=== PATIENT | male | born 1995 | race Caucasian/White ===

== ENCOUNTER 2024-10-16 08:50 | Emergency (ER) | payer MEDICAID, SELFPAY ==
[2024-10-16 08:51] VITALS: BMI 26.4
--- NOTE | 2024-10-16 08:53 | XR_ITS ---
Examination: Ribs, right, 5 views, including AP chest Technique: AP supine chest, RIBS AP, RPO, LPO, AP coned lower ribs 5 views right RIBS Exam date and time: October 16, 2024 0900 hours INDICATIONS: Right rib pain beginning 4 days ago Findings: Normal heart size No pneumothorax Ribs appear intact IMPRESSION: No pneumothorax pulmonary contusion or hemothorax Ribs appear intact
[2024-10-16 08:59] VITALS: BP 142/87; PULSE 78; RESP 16; TEMP 36.9; O2SAT 96; BMI 26.2
--- NOTE | 2024-10-16 09:48 | PD.EDADULT ---
ED General RME/HPI General Chief complaint: General Adult/Misc Complain Stated complaint: RIGHT RIB PAIN x 4 DAYS, FELT POP Time Seen by Provider: 10/16/24 08:53 Arrival date/time: 10/16/24 08:50 29-year-old male presents emergency department today with complaints of right-sided rib pain patient reports he was golfing 4 days ago and felt a pop and a pulling sensation on the right side of his chest/rib region Limitations: no limitations Related Data Previous Rx's ?Medication ?Instructions ?Recorded ibuprofen 600 mg tablet 600 mg PO TID #20 tabs 03/20/18 cyclobenzaprine 10 mg tablet 10 mg PO TID PRN muscle spasm 10 10/16/24 days #30 tab-caps Allergies Allergy/AdvReac Type Severity Reaction Status Date / Time Penicillins Allergy Severe Swelling Verified 10/16/24 08:53 of Lip/Tongue/Throat tramadol Allergy Severe NAUSEA, Verified 10/16/24 08:53 Review of Systems Review of Systems Systems Reviewed: All systems reviewed, normal except as documented Constitutional Constitutional: Reports system reviewed and no additional complaints, except as documented, Denies fever(s) and Denies headache(s) Eyes Eyes: Reports system reviewed and no additional complaints, except as documented and Denies blurry vision ENT Ears, Nose, Mouth, and Throat: Reports system reviewed and no additional complaints, except as documented, Denies headache(s), Denies nasal congestion and Denies nasal discharge Cardiovascular Cardiovascular: Reports system reviewed and no additional complaints, except as documented, Denies chest pain and Denies dyspnea Respiratory Respiratory: Reports system reviewed and no additional complaints, except as documented, Denies chest congestion, Denies cough and Denies dyspnea Gastrointestinal Gastrointestinal: Reports system reviewed and no additional complaints, except as documented and Denies abdominal pain Musculoskeletal Musculoskeletal: Reports system reviewed and no additional complaints, except as documented and Reports other (Right-sided rib pain) Integumentary/Breasts Skin/Breast: Reports system reviewed and no additional complaints, except as documented and Denies rash Neurologic Neurologic: Reports system reviewed and no additional complaints, except as documented, Reports as per HPI and Denies headache(s) Past Medical History Social History SMOKING STATUS: Never smoker ED Exam General Limitations: Present no limitations General appearance: Present alert and in no apparent distress Head Head exam: Present atraumatic Eye Eye exam: Present normal appearance, PERRL and EOMI ENT ENT exam: Present normal exam, normal oropharynx and mucous membranes moist Neck Neck exam: Present normal inspection, full ROM and trachea midline Chest Chest inspection: Present normal inspection, symmetric chest wall rise and tenderness (Right-sided rib pain) Respiratory Respiratory exam: Present normal lung sounds bilaterally; Absent respiratory distress Cardiovascular Cardiovascular exam: Present regular rate, normal rhythm and normal heart sounds; Absent bradycardia, tachycardia or irregular rhythm Abdominal Exam Abdominal exam: Present soft and normal bowel sounds; Absent distention, tenderness, guarding, rebound or rigidity Extremities Exam Extremities exam: Present normal inspection and full ROM; Absent tenderness Back Exam Back exam: Present normal inspection and full ROM Neurological Exam Neurological exam: Present alert, oriented X3, CN II-XII intact, normal gait and reflexes normal; Absent motor sensory deficit Psychiatric Psychiatric exam: Present normal affect and normal mood Skin Skin exam: Present warm, dry, intact and normal color; Absent rash Course Quality Measures none Orders Category Date Time Status XR ribs RT min 3V w CXR1V Stat Exams 10/16/24 08:53 Completed Vital Signs Vital signs: Vital Signs Temperature 98.5 F 10/16/24 08:59 Pulse Rate 78 10/16/24 08:59 Respiratory Rate 16 10/16/24 08:59 Blood Pressure 142/87 H 10/16/24 08:59 Pulse Oximetry (%) 96 10/16/24 08:59 Oxygen Delivery Method Room Air 10/16/24 08:59 O2 saturation 96% room air within normal limits [facility] Patient data External records reviewed:: [facility] previous records Clinical information provided by:: patient Social determinants that could affect healthcare access:: none Patient has the following chronic illnesses:: Chronic back pain How is presenting disease/condition affected by chronic disease/condition?: uneffected by Evaluation data The following diagnostics were reviewed and interpreted by me:: radiology exam(s) Lab and/or radiology exams considered but not ordered:: Radiology obtained Interpretation Summary: Reviewed by me Medications Medications considered but not ordered:: Given Medication administrations:: Given Consultations Consultation(s) initiated? (list below): No Diagnosis Differential Diagnosis ED Complaint MDM: Rib pain, rib fracture, rib contusion Most likely diagnosis given after review of the tests above:: Rib pain right Admission Indicated Admission indicated?: not indicated Explain why admission is indicated or not indicated:: No criteria Admission Request Was there a request for admission?: No Disposition Plan Disposition Plan: Discharge Discharge Attestation Discharge Attestation: The patient and all family members were given an opportunity to ask questions and understood the discharge instructions. Discharge instructions specifically effects, indications for sooner follow up or return to the emergency department, and the expected course of current diagnosis. Patient condition: Stable Medical Decision Making MDM Narrative MDM Narrative: 29-year-old male presents to emergency department today with complaints of right-sided rib pain patient reports he was golfing 4 days ago and felt a pop and a pulling sensation on the right side of his chest/rib region On exam Differential Diagnosis Differential Diagnosis: Rib pain, rib fracture, rib contusion Discharge Plan Plan Patient Disposition: HOME (Self Care) Disposition Comment: Stable Prescriptions/Referrals Prescriptions/Med Rec: New cyclobenzaprine 10 mg tablet 10 mg PO TID PRN (Reason: muscle spasm) 10 Days Qty: 30 0RF No Action ibuprofen 600 mg tablet 600 mg PO TID Qty: 20 0RF Problem List Clinical Impression: Rib pain on right side Patient/Caregiver Discharge Instructions Education Materials: ED Chest Pain, Noncardiac Additional Instructions: Please follow up with your primary care doctor in the next 24-48hrs for any worsening symptoms return here immediately Print Language: [place] Citizen Stand Alone Forms: Lauren Award Info., Work/School Release, Patient Portal Info Letter KAILASH/RAMIN Supervising Physician KAILASH/RAMIN Supervising Physician: Dr. Astorga
== END 2024-10-16 09:56 | disposition home or self-care (01) ==
LOC: SERX 09:50
PROVIDERS: Emergency Provider Emergency Medicine; PCP Family Medicine
DX: R07.81 Pleurodynia (principal)
CPT/HCPCS: 71101; 99283